=== PATIENT | female | born 1965 | race African-American/Black ===

== ENCOUNTER 2019-08-06 09:27 | Inpatient (IN) | payer OTHER ==
--- NOTE | 2019-08-06 09:47 | BHS.RME ---
Substance Use & Tx History - Substance Use History Opiates (Heroin) Substance amount: 3 bags Frequency of use: Daily Substance route: Injection (ex: intravenous or skin popping) Date of Last Use: 08/05/19 Cocaine (Crack) Substance amount: $80 Frequency of use: Daily Substance route: Smoking Date of Last Use: 08/05/19 Cannabis Substance amount: 1 blunt Frequency of use: Less than 3 times per week Substance route: Smoking Date of Last Use: 08/04/19 Physical/Psych/Mental Status - Behavior General Behavior: Increased activity (restlessness, agitation) Eye Contact: Normal - Cooperativeness Cooperativeness: Reluctant - Thinking Thought Processes: Tight, Logical, Goal Directed Thought content: Future oriented - Physical Health Problems Is patient presently having any pain?: No Does patient presently have any injuries (include location): No Does patient currently have a fever: No Is patient : No COWS - Scale Resting Pulse: 0= [place] 80 or Below Sweatin= Beads of Sweat on Face Restless Observation: 1= Difficult to Sit Still Pupil Size: 0= Normal to Room Light Bone or Joint Aches: 4=Acute Joint/Muscle Pain GI Upset > 30mins: 1= Stomach Cramp Tremor Observation: 0= None Yawning Observation: 0= None Anxiety or Irritability: 0= None Goose Flesh Skin: 0=Smooth Skin
--- NOTE | 2019-08-06 11:09 | HP ---
COWS - Scale Resting Pulse: 0= [place] 80 or Below Sweatin= Beads of Sweat on Face Restless Observation: 1= Difficult to Sit Still Pupil Size: 0= Normal to Room Light Bone or Joint Aches: 4=Acute Joint/Muscle Pain Runny Nose/ Eye Tearin= None GI Upset > 30mins: 1= Stomach Cramp Tremor Observation: 0= None Yawning Observation: 0= None Anxiety or Irritability: 0= None Goose Flesh Skin: 0=Smooth Skin COWS Score: 9 CIWA Score - Admission Criteria OASAS Guidelines: Admission for Medically Managed Detox: Requires at least one of the followin. CIWA greater than 12 2. Seizures within the past 24 hours 3. Delirium tremens within the past 24 hours 4. Hallucinations within the past 24 hours 5. Acute intervention needed for co occurring medical disorder 6. Acute intervention needed for co occurring psychiatric disorder 7. Severe withdrawal that cannot be handled at a lower level of care (continued vomiting, continued diarrhea, abnormal vital signs) requiring intravenous medication and/or fluids 8. Admitting History and Physical - Admission Chief Complaint: Ms. Borja presents to [facility] "for detox from heroin". History of Present Illness: Ms. Borja presents to [facility] "for detox from heroin". PMH: right wrist fracture 2 weeks ago, in a cast now PSH: none Psych: denies Substance use history Heroin: first use at the age of 49 y, last use yesterday, amount: $30. per day. IV use. Hx of OD one month ago. Never on methadone. CracK $80. daily, IV, last use one week ago, first use: "I can not say" I am unable to access prior visit history. Admission [facility] Exam Limitations: No Limitations - Ebola screening Have you traveled outside of the country in the last 21 days: No Have you had contact with anyone from an Ebola affected area: No Have you been sick,other than usual withdrawal symptoms: No Do you have a fever: No - Review of Systems Constitutional: No Symptoms Reported EENT: reports: No Symptoms Reported Respiratory: reports: No Symptoms reported Cardiac: reports: No Symptoms Reported GI: reports: Nausea : reports: No Symptoms Reported Musculoskeletal: reports: Other (left knee pain after fall 2 weeks ago. Right arm complaint: pain where cast is in right hand web space area) Integumentary: reports: No Symptoms Reported Neuro: reports: No Symptoms reported Endocrine: reports: No Symptoms Reported Hematology: reports: No Symptoms Reported Psychiatric: reports: No Sypmtoms Reported Patient History - Patient Medical History Hx Hepatitis C: Yes (untreated) - Smoking Cessation Smoking history: Current some day smoker Have you smoked in the past 12 months: Yes Aproximately how many cigarettes per day: 4 Hx Chewing Tobacco Use: No Initiated information on smoking cessation: Yes 'Breaking Loose' booklet given: 08/06/19 - Substances abused Heroin Substance route: Injection Frequency: Daily Amount used: $30 Age of first use: 49 Date of last use: 08/05/19 Crack Substance route: Injection Amount used: $80. Age of first use: 49 (pt can not specify) Date of last use: 07/30/19 Admission Physical Exam [facility] - Physical General Appearance: Yes: Within Normal Limits HEENTM: Yes: Within Normal Limits Respiratory: Yes: Lungs Clear, Normal Breath Sounds Neck: Yes: Within Normal Limits Breast: Yes: Breast Exam Deferred Cardiology: Yes: Regular Rate, S1, S2 Abdominal: Yes: Normal Bowel Sounds, Non Tender, Flat, Soft Back: Yes: Normal Inspection Musculoskeletal: Yes: Other (right arm casted to distal arm, fingers of right hand warm/good circulation) Neurological: Yes: Other (sleepy) Integumentary: Yes: Other (hyperpigmented patches both legs ciruclar, some confluent patches) Cleared for Admission [facility] - Detox or Rehab [facility] Level of Care: Medically Managed Detox Regimen/Protocol: Methadone Breathalyzer - Breathalyzer Breathalyzer: 0 Urine Drug Screen - Test Device Lot number: [id number] Expiration date: 05/12/21 - Control Is test valid?: Yes - Results Drug screen NEGATIVE: No Urine drug screen results: THC-Marijuana, LINA-Cocaine, FEN-Fentanyl, MOP-Opiates Inpatient Rehab Admission - Rehab Decision to Admit Inpatient rehab admission?: No
[2019-08-06] MEDS ORDERED: IBUPROFEN 400 MG TABLET (FP) PO PRN (11:19)
[2019-08-06] MEDS ORDERED: MAG HYDROX/AL HYDROX/SIMETH 30 ML UNIT-DOSE CUP PO PRN (11:19)
[2019-08-06] MEDS ORDERED: ACETAMINOPHEN 325 MG TABLET (FP) PO PRN ×2 (11:19)
[2019-08-06] MEDS ORDERED: MENTHOL/PHENOL 1 EACH UD MM PRN (11:19)
[2019-08-06] MEDS ORDERED: BISMUTH SUBSALICYLATE 262 MG/15 ML BTL PO PRN (11:19)
[2019-08-06] MEDS ORDERED: MAGNESIUM CITRATE 300 ML BOTTLE PO PRN (11:19)
[2019-08-06] MEDS ORDERED: hydrOXYzine PAMOATE 25 MG CAPSULE (FP) PO PRN (11:19)
[2019-08-06] MEDS ORDERED: MAGNESIUM HYDROX 2400MG/30ML ORAL SUSPENSION 30 ML CUP PO PRN (11:19)
[2019-08-06] MEDS ORDERED: cloNIDine HCL 0.1 MG TABLET PO PRN (11:19)
[2019-08-06 11:53] VITALS: BMI 19.8
[2019-08-06] MEDS ORDERED: METHADONE HCL 10 MG TABLET (FOR DETOX USE ONLY) PO ONE (12:20)
[2019-08-06] MEDS: NICOTINE 14 MG/24 HOURS TOPICAL PATCH TD SCH (12:55)
[2019-08-06 16:18] LABS: HEMATOCRIT 35.7 % (32.4-45.2); HEMOGLOBIN 11.4 GM/dL (10.7-15.3); MCH 31.1 pg (25.7-33.7); MCHC 31.9 g/dl (32.0-36.0); MEAN CELL VOLUME 97.5 fl (80-96); PLATELET COUNT 272 K/MM3 (134-434); RBC 3.66 M/mm3 (3.60-5.2); RDW 14.6 % (11.6-15.6); WHITE BLOOD COUNT 4.5 K/mm3 (4.0-10.0)
[2019-08-06 16:35] LABS: ALBUMIN 3.1 g/dl (3.4-5.0); BILIRUBIN,TOTAL 0.3 mg/dL (0.2-1); BLOOD UREA NITROGEN 18.5 mg/dL (7-18); CALCIUM 9.3 mg/dL (8.5-10.1); POTASSIUM 4.7 mmol/L (3.5-5.1); TOT PROT 7.5 g/dl (6.4-8.2)
[2019-08-06] MEDS: MELATONIN 5 MG TABLETS PO PRN (22:17)
[2019-08-06] MEDS: THIAMINE HCL 100 MG TABLET (FP) PO SCH (22:17)
[2019-08-07] MEDS ORDERED: METHADONE HCL 10 MG TABLET (FOR DETOX USE ONLY) ONE (09:04)
[2019-08-07] MEDS ORDERED: METHADONE HCL 5 MG TABLET (FOR DETOX USE ONLY) ONE (09:05)
[2019-08-07] MEDS: PRENATAL VITAMINS W/ FOLIC ACID TABLET (FP) PO SCH (09:36)
[2019-08-07] MEDS: NICOTINE 14 MG/24 HOURS TOPICAL PATCH TD SCH (09:36)
--- NOTE | 2019-08-07 09:42 | EKG ---
Test Reason : Blood Pressure : / mmHG Vent. Rate : 078 BPM Atrial Rate : 078 BPM P-R Int : 120 ms QRS Dur : 078 ms QT Int : 400 ms P-R-T Axes : 075 066 069 degrees QTc Int : 456 ms NORMAL SINUS RHYTHM POSSIBLE LEFT ATRIAL ENLARGEMENT BORDERLINE ECG NO PREVIOUS ECGS AVAILABLE Confirmed by Sean Cueva MD ([id number]) on 08/07/2019 9:42:25 AM Referred By: Confirmed By:Sean Cueva MD
[2019-08-07] MEDS ORDERED: METHADONE (DETOX) 20 MG, METHADONE (DETOX) 5 MG PO ONE (10:00)
--- NOTE | 2019-08-07 13:50 | PN ---
BHS COWS - Scale Resting Pulse: 0= [place] 80 or Below Sweatin= Chills/Flushing Restless Observation: 0= Sits Still Pupil Size: 1= Pupils >than Normal Bone or Joint Aches: 1= Mild Discomfort Runny Nose/ Eye Tearin= Nasal Congestion GI Upset > 30mins: 1= Stomach Cramp Tremor Observation of Outstretched Hands: 1= Tremor [place], Not Seen Yawning Observation: 0= None Anxiety or Irritability: 2=Irritable/Anxious Goose Flesh Skin: 0=Smooth Skin COWS Score: 8 S Progress Note (SOAP) Subjective: 54 years old female admitted on 08/06/19 for opiate withdrawal sx management treating with methadone detox regiment ate breakfast tolerated food and fluid well reports headache tylenal 650 mg po x 1 Objective: 08/07/19 13:46 Vital Signs Temperature 98.3 F 08/07/19 12:54 Pulse Rate 70 08/07/19 12:54 Respiratory Rate 16 08/07/19 12:54 Blood Pressure 125/79 08/07/19 12:54 O2 Sat by Pulse Oximetry (%) Laboratory Last Values WBC 4.5 K/mm3 (4.0-10.0) 08/06/19 12:00 RBC 3.66 M/mm3 (3.60-5.2) 08/06/19 12:00 Hgb 11.4 GM/dL (10.7-15.3) 08/06/19 12:00 Hct 35.7 % (32.4-45.2) 08/06/19 12:00 MCV 97.5 fl (80-96) H 08/06/19 12:00 MCH 31.1 pg (25.7-33.7) 08/06/19 12:00 MCHC 31.9 g/dl (32.0-36.0) L 08/06/19 12:00 RDW 14.6 % (11.6-15.6) 08/06/19 12:00 Plt Count 272 K/MM3 (134-434) 08/06/19 12:00 MPV 9.0 fl (7.5-11.1) 08/06/19 12:00 Sodium 144 mmol/L (136-145) 08/06/19 12:00 Potassium 4.7 mmol/L (3.5-5.1) 08/06/19 12:00 Chloride 110 mmol/L (98-107) H 08/06/19 12:00 Carbon Dioxide 30 mmol/L (21-32) 08/06/19 12:00 Anion Gap 4 MMOL/L (8-16) L 08/06/19 12:00 BUN 18.5 mg/dL (7-18) H 08/06/19 12:00 Creatinine 1.0 mg/dL (0.55-1.3) 08/06/19 12:00 Est GFR (CKD-EPI)AfAm 72.93 08/06/19 12:00 Est GFR (CKD-EPI)NonAf 62.93 08/06/19 12:00 Random Glucose 114 mg/dL (74-106) H 08/06/19 12:00 Calcium 9.3 mg/dL (8.5-10.1) 08/06/19 12:00 Total Bilirubin 0.3 mg/dL (0.2-1) 08/06/19 12:00 AST 19 U/L (15-37) 08/06/19 12:00 ALT 20 U/L (13-61) 08/06/19 12:00 Alkaline Phosphatase 147 U/L (45-117) H 08/06/19 12:00 Total Protein 7.5 g/dl (6.4-8.2) 08/06/19 12:00 Albumin 3.1 g/dl (3.4-5.0) L 08/06/19 12:00 RPR Titer Nonreactive (NONREACTIVE) 08/06/19 12:00 lab noted Assessment: 08/07/19 13:52 opiate withdrawal Plan: methadone regiment
[2019-08-07] MEDS ORDERED: ACETAMINOPHEN 325 MG TABLET (FP) PO ONE (14:00)
[2019-08-07] MEDS: MELATONIN 5 MG TABLETS PO PRN (22:14)
[2019-08-07] MEDS: THIAMINE HCL 100 MG TABLET (FP) PO SCH (22:15)
--- NOTE | 2019-08-08 09:44 | PN ---
BHS COWS - Scale Resting Pulse: 0= [place] 80 or Below Sweatin= No chills or Flushing Restless Observation: 0= Sits Still Pupil Size: 1= Pupils >than Normal Bone or Joint Aches: 2= Severe Diffuse Aches Runny Nose/ Eye Tearin= None GI Upset > 30mins: 1= Stomach Cramp Tremor Observation of Outstretched Hands: 1= Tremor [place], Not Seen Yawning Observation: 0= None Anxiety or Irritability: 2=Irritable/Anxious Goose Flesh Skin: 0=Smooth Skin COWS Score: 7 BHS Progress Note (SOAP) Subjective: 54 years old female admitted on 08/06/19 for opiate withdrawal sx management treating with methadone detox regiment right forearm full cast intack fingers mobile and warm ensure supplement due to BMI 19.8 Ms Huong fracture her right wrist two weeks ago and has follow up appointment around beginning of the August at [facility] Objective: 08/08/19 09:45 Vital Signs Temperature 98.2 F 08/08/19 06:52 Pulse Rate 52 L 08/08/19 06:52 Respiratory Rate 18 08/08/19 06:52 Blood Pressure 140/91 08/08/19 06:52 O2 Sat by Pulse Oximetry (%) Laboratory Last Values WBC 4.5 K/mm3 (4.0-10.0) 08/06/19 12:00 RBC 3.66 M/mm3 (3.60-5.2) 08/06/19 12:00 Hgb 11.4 GM/dL (10.7-15.3) 08/06/19 12:00 Hct 35.7 % (32.4-45.2) 08/06/19 12:00 MCV 97.5 fl (80-96) H 08/06/19 12:00 MCH 31.1 pg (25.7-33.7) 08/06/19 12:00 MCHC 31.9 g/dl (32.0-36.0) L 08/06/19 12:00 RDW 14.6 % (11.6-15.6) 08/06/19 12:00 Plt Count 272 K/MM3 (134-434) 08/06/19 12:00 MPV 9.0 fl (7.5-11.1) 08/06/19 12:00 Sodium 144 mmol/L (136-145) 08/06/19 12:00 Potassium 4.7 mmol/L (3.5-5.1) 08/06/19 12:00 Chloride 110 mmol/L (98-107) H 08/06/19 12:00 Carbon Dioxide 30 mmol/L (21-32) 08/06/19 12:00 Anion Gap 4 MMOL/L (8-16) L 08/06/19 12:00 BUN 18.5 mg/dL (7-18) H 08/06/19 12:00 Creatinine 1.0 mg/dL (0.55-1.3) 08/06/19 12:00 Est GFR (CKD-EPI)AfAm 72.93 08/06/19 12:00 Est GFR (CKD-EPI)NonAf 62.93 08/06/19 12:00 Random Glucose 114 mg/dL (74-106) H 08/06/19 12:00 Calcium 9.3 mg/dL (8.5-10.1) 08/06/19 12:00 Total Bilirubin 0.3 mg/dL (0.2-1) 08/06/19 12:00 AST 19 U/L (15-37) 08/06/19 12:00 ALT 20 U/L (13-61) 08/06/19 12:00 Alkaline Phosphatase 147 U/L (45-117) H 08/06/19 12:00 Total Protein 7.5 g/dl (6.4-8.2) 08/06/19 12:00 Albumin 3.1 g/dl (3.4-5.0) L 08/06/19 12:00 RPR Titer Nonreactive (NONREACTIVE) 08/06/19 12:00 lab noted 08/08/19 09:47 bp elevation begin amlodipine 5 mg po daily Assessment: 08/08/19 09:48 opiate withdrawal Plan: methadone regiment
[2019-08-08] MEDS ORDERED: METHADONE HCL 10 MG TABLET (FOR DETOX USE ONLY) PO ONE (10:00)
[2019-08-08] MEDS: NICOTINE 14 MG/24 HOURS TOPICAL PATCH TD SCH (10:14)
[2019-08-08] MEDS: PRENATAL VITAMINS W/ FOLIC ACID TABLET (FP) PO SCH (10:14)
[2019-08-08] MEDS: amLODIPine BESYLATE 5 MG TABLET (FP) PO SCH (10:15)
[2019-08-08] MEDS: MELATONIN 5 MG TABLETS PO PRN (22:35)
[2019-08-08] MEDS: THIAMINE HCL 100 MG TABLET (FP) PO SCH (22:35)
[2019-08-09] MEDS ORDERED: METHADONE HCL 5 MG TABLET (FOR DETOX USE ONLY) ONE (09:46)
[2019-08-09] MEDS ORDERED: METHADONE HCL 10 MG TABLET (FOR DETOX USE ONLY) ONE (09:46)
[2019-08-09] MEDS ORDERED: METHADONE (DETOX) 10 MG, METHADONE (DETOX) 5 MG PO ONE (10:00)
[2019-08-09] MEDS: PRENATAL VITAMINS W/ FOLIC ACID TABLET (FP) PO SCH (10:27)
[2019-08-09] MEDS: NICOTINE 14 MG/24 HOURS TOPICAL PATCH TD SCH (10:27)
[2019-08-09] MEDS: amLODIPine BESYLATE 5 MG TABLET (FP) PO SCH (10:27)
[2019-08-09] MEDS: METHOCARBAMOL 500 MG TABLET PO PRN ×2 (10:31→22:11)
--- NOTE | 2019-08-09 10:37 | PN ---
BHS COWS - Scale Resting Pulse: 0= [place] 80 or Below Sweatin= Chills/Flushing Restless Observation: 0= Sits Still Pupil Size: 1= Pupils >than Normal Bone or Joint Aches: 1= Mild Discomfort Runny Nose/ Eye Tearin= None GI Upset > 30mins: 1= Stomach Cramp Tremor Observation of Outstretched Hands: 1= Tremor [place], Not Seen Yawning Observation: 0= None Anxiety or Irritability: 1=Feels Anxious/Irritable Goose Flesh Skin: 0=Smooth Skin COWS Score: 6 BHS Progress Note (SOAP) Subjective: 54 years old female admitted on 08/06/19 for opiate withdrawal sx management treating with methadone detox regiment ate breakfast no trouble chewing swallowing tolerated food well Objective: 08/09/19 10:37 Vital Signs Temperature 97.2 F L 08/09/19 08:45 Pulse Rate 65 08/09/19 08:45 Respiratory Rate 18 08/09/19 08:45 Blood Pressure 125/82 08/09/19 08:45 O2 Sat by Pulse Oximetry (%) Laboratory Last Values WBC 4.5 K/mm3 (4.0-10.0) 08/06/19 12:00 RBC 3.66 M/mm3 (3.60-5.2) 08/06/19 12:00 Hgb 11.4 GM/dL (10.7-15.3) 08/06/19 12:00 Hct 35.7 % (32.4-45.2) 08/06/19 12:00 MCV 97.5 fl (80-96) H 08/06/19 12:00 MCH 31.1 pg (25.7-33.7) 08/06/19 12:00 MCHC 31.9 g/dl (32.0-36.0) L 08/06/19 12:00 RDW 14.6 % (11.6-15.6) 08/06/19 12:00 Plt Count 272 K/MM3 (134-434) 08/06/19 12:00 MPV 9.0 fl (7.5-11.1) 08/06/19 12:00 Sodium 144 mmol/L (136-145) 08/06/19 12:00 Potassium 4.7 mmol/L (3.5-5.1) 08/06/19 12:00 Chloride 110 mmol/L (98-107) H 08/06/19 12:00 Carbon Dioxide 30 mmol/L (21-32) 08/06/19 12:00 Anion Gap 4 MMOL/L (8-16) L 08/06/19 12:00 BUN 18.5 mg/dL (7-18) H 08/06/19 12:00 Creatinine 1.0 mg/dL (0.55-1.3) 08/06/19 12:00 Est GFR (CKD-EPI)AfAm 72.93 08/06/19 12:00 Est GFR (CKD-EPI)NonAf 62.93 08/06/19 12:00 Random Glucose 114 mg/dL (74-106) H 08/06/19 12:00 Calcium 9.3 mg/dL (8.5-10.1) 08/06/19 12:00 Total Bilirubin 0.3 mg/dL (0.2-1) 08/06/19 12:00 AST 19 U/L (15-37) 08/06/19 12:00 ALT 20 U/L (13-61) 08/06/19 12:00 Alkaline Phosphatase 147 U/L (45-117) H 08/06/19 12:00 Total Protein 7.5 g/dl (6.4-8.2) 08/06/19 12:00 Albumin 3.1 g/dl (3.4-5.0) L 08/06/19 12:00 RPR Titer Nonreactive (NONREACTIVE) 08/06/19 12:00 lab noted Assessment: 08/09/19 10:37 opiate withdrawal Plan: methadone regiment
[2019-08-09] MEDS: THIAMINE HCL 100 MG TABLET (FP) PO SCH (22:10)
[2019-08-09] MEDS: MELATONIN 5 MG TABLETS PO PRN (22:11)
[2019-08-10] MEDS: METHOCARBAMOL 500 MG TABLET PO PRN ×3 (05:10→21:33)
[2019-08-10] MEDS ORDERED: METHADONE HCL 10 MG TABLET (FOR DETOX USE ONLY) PO ONE (10:00)
[2019-08-10] MEDS: PRENATAL VITAMINS W/ FOLIC ACID TABLET (FP) PO SCH (10:44)
[2019-08-10] MEDS: NICOTINE 14 MG/24 HOURS TOPICAL PATCH TD SCH (10:46)
--- NOTE | 2019-08-10 11:24 | PN ---
BHS COWS - Scale Resting Pulse: 0= [place] 80 or Below Sweatin= No chills or Flushing Restless Observation: 1= Difficult to Sit Still Pupil Size: 1= Pupils >than Normal Bone or Joint Aches: 1= Mild Discomfort Runny Nose/ Eye Tearin= None GI Upset > 30mins: 1= Stomach Cramp Tremor Observation of Outstretched Hands: 1= Tremor [place], Not Seen Yawning Observation: 1= 1-2x During Session Anxiety or Irritability: 2=Irritable/Anxious Goose Flesh Skin: 0=Smooth Skin COWS Score: 8 BHS Progress Note (SOAP) Subjective: alert,irritable,anxious,interrupted sleep,long arm cast right Objective: 08/10/19 11:23 Vital Signs Temperature 97.8 F 08/10/19 08:38 Pulse Rate 64 08/10/19 08:38 Respiratory Rate 18 08/10/19 08:38 Blood Pressure 132/74 08/10/19 08:38 O2 Sat by Pulse Oximetry (%) Assessment: 08/10/19 11:23 withdrawal symptom Plan: continue detox methadone regimen,discharge in am
[2019-08-10] MEDS: amLODIPine BESYLATE 5 MG TABLET (FP) PO SCH (11:54)
[2019-08-10] MEDS: MELATONIN 5 MG TABLETS PO PRN (21:34)
[2019-08-10] MEDS: THIAMINE HCL 100 MG TABLET (FP) PO SCH (21:34)
[2019-08-11] MEDS: METHOCARBAMOL 500 MG TABLET PO PRN (03:47)
[2019-08-11] MEDS ORDERED: METHADONE HCL 5 MG TABLET (FOR DETOX USE ONLY) PO ONE (06:00)
[2019-08-11 07:24] VITALS: BP 113/65; PULSE 64; TEMP 96.9
--- NOTE | 2019-08-11 12:55 | DS ---
[facility] Detox Discharge Summary Admission Date: 08/06/19 Discharge Date: 08/11/19 - History Present History: Cocaine Dependence, Opioid Dependence Additional Comments: Pt is medically cleared and discharged today. Pt completed the detox protocol. Pt is encouraged to follow-up with an outpatient CD program and also to follow- up with her pmd. Pt verbalized understanding of the information given. Pt is alert and oriented x3 and in no acute respiratory distress. Pertinent Past History: heroin and cocaine use disorder. - Physical Exam Results Vital Signs: Vital Signs Temperature 96.9 F L 08/11/19 07:23 Pulse Rate 64 08/11/19 07:23 Respiratory Rate 16 08/11/19 07:23 Blood Pressure 113/65 08/11/19 07:23 O2 Sat by Pulse Oximetry (%) Vital Signs 08/11/19 07:23 Temperature 96.9 F L Pulse Rate 64 Respiratory 16 Rate Blood Pressure 113/65 Laboratory Last Values WBC 4.5 K/mm3 (4.0-10.0) 08/06/19 12:00 RBC 3.66 M/mm3 (3.60-5.2) 08/06/19 12:00 Hgb 11.4 GM/dL (10.7-15.3) 08/06/19 12:00 Hct 35.7 % (32.4-45.2) 08/06/19 12:00 MCV 97.5 fl (80-96) H 08/06/19 12:00 MCH 31.1 pg (25.7-33.7) 08/06/19 12:00 MCHC 31.9 g/dl (32.0-36.0) L 08/06/19 12:00 RDW 14.6 % (11.6-15.6) 08/06/19 12:00 Plt Count 272 K/MM3 (134-434) 08/06/19 12:00 MPV 9.0 fl (7.5-11.1) 08/06/19 12:00 Sodium 144 mmol/L (136-145) 08/06/19 12:00 Potassium 4.7 mmol/L (3.5-5.1) 08/06/19 12:00 Chloride 110 mmol/L (98-107) H 08/06/19 12:00 Carbon Dioxide 30 mmol/L (21-32) 08/06/19 12:00 Anion Gap 4 MMOL/L (8-16) L 08/06/19 12:00 BUN 18.5 mg/dL (7-18) H 08/06/19 12:00 Creatinine 1.0 mg/dL (0.55-1.3) 08/06/19 12:00 Est GFR (CKD-EPI)AfAm 72.93 08/06/19 12:00 Est GFR (CKD-EPI)NonAf 62.93 08/06/19 12:00 Random Glucose 114 mg/dL (74-106) H 08/06/19 12:00 Calcium 9.3 mg/dL (8.5-10.1) 08/06/19 12:00 Total Bilirubin 0.3 mg/dL (0.2-1) 08/06/19 12:00 AST 19 U/L (15-37) 08/06/19 12:00 ALT 20 U/L (13-61) 08/06/19 12:00 Alkaline Phosphatase 147 U/L (45-117) H 08/06/19 12:00 Total Protein 7.5 g/dl (6.4-8.2) 08/06/19 12:00 Albumin 3.1 g/dl (3.4-5.0) L 08/06/19 12:00 RPR Titer Nonreactive (NONREACTIVE) 08/06/19 12:00 Labs noted. Pertinent Admission Physical Exam Findings: withdrawal symptoms. - Treatment Hospital Course: Detox Protocol Followed, Detoxed Safely, Responded well, Discharged Condition Good - Medication Discharge Medications: Ambulatory Orders Naloxone HCl [Narcan] 4 mg NS ASDIR PRN #1 spray 08/08/19 - Diagnosis (1) Cocaine use disorder Status: Chronic (2) Heroin use disorder, mild, abuse Status: Chronic - AMA Did Patient Leave Against Medical Advice: No
== END 2019-08-11 09:00 | disposition home or self-care (01) | DRG 773 ==
LOC: YASAS 09:27 → Y3N 12:18
PROVIDERS: ADMIT Allergy & Immunology; ATTEND Allergy & Immunology
PROC: HZ2ZZZZ Detoxification Services for Substance Abuse Treatment (ICD-10-PCS; principal; 2019-08-06)
DX: F11.23 Opioid dependence with withdrawal (principal); F14.20 Cocaine dependence, uncomplicated; F12.20 Cannabis dependence, uncomplicated; R03.0 Elevated blood-pressure reading, without diagnosis of hypertension; S62.101D Fracture of unspecified carpal bone, right wrist, subsequent encounter for fracture with routine healing; X58.XXXD Exposure to other specified factors, subsequent encounter
CPT/HCPCS: 36415; 80053; 85027; 86593; 93005; 93010

== ENCOUNTER 2019-12-17 18:21 | Inpatient (IN) | payer OTHER ==
[2019-12-17 19:17] VITALS: BMI 19.5
--- NOTE | 2019-12-17 20:51 | HP ---
COWS - Scale Resting Pulse: 0= [place] 80 or Below Sweatin= No chills or Flushing Restless Observation: 5= Unable to Sit Still Pupil Size: 0= Normal to Room Light Bone or Joint Aches: 0= None Runny Nose/ Eye Tearin= Runny Nose/Eyes GI Upset > 30mins: 5=Frequent Vomit/Diarrhea (diarrhea) Tremor Observation: 0= None Yawning Observation: 1= 1-2x During Session Anxiety or Irritability: 2=Irritable/Anxious Goose Flesh Skin: 0=Smooth Skin COWS Score: 15 CIWA Score - Admission Criteria OASAS Guidelines: Admission for Medically Managed Detox: Requires at least one of the followin. CIWA greater than 12 2. Seizures within the past 24 hours 3. Delirium tremens within the past 24 hours 4. Hallucinations within the past 24 hours 5. Acute intervention needed for co occurring medical disorder 6. Acute intervention needed for co occurring psychiatric disorder 7. Severe withdrawal that cannot be handled at a lower level of care (continued vomiting, continued diarrhea, abnormal vital signs) requiring intravenous medication and/or fluids 8. Admitting History and Physical - Past Medical History ...: No - Smoking History Smoking history: Current every day smoker Have you smoked in the past 12 months: Yes Aproximately how many cigarettes per day: 4 Admission ROS [facility] Chief Complaint: c/o heroin withdrawal. seeking detox Allergies/Adverse Reactions: Allergies Allergy/AdvReac Type Severity Reaction Status Date / Time No Known Allergies Allergy Verified 12/17/19 19:17 History of Present Illness: HERE FOR HEROIN DETOX. REPORTS DAILY HEROIN USE. LAST USE 1 DAY AGO. NOW PRESENTS WITH C/O WITHDRAWAL SXS. SEEKING DETOX. SHE IS REFERRED BY [facility] AFTER PRESENTING THERE TODAY WITH C/O INDIGESTION. KNOWN TO PROGRAM. LAST AMD 08/06/19-08/11/19 FOR DETOX. CLIENT REPORTS SHE WAS CLEAN FOR 3 MONTHS PRIOR TO RELAPSING 1 MONTH AGO. + IVDU, DENIES HX/O DRUG OVERDOSE, BLACK OUTS, SEIZURES. LIVES ALONE, UNEMPLOYED, DENIES LEGALS. Exam Limitations: No Limitations - Ebola screening Have you traveled outside of the country in the last 21 days: No Have you had contact with anyone from an Ebola affected area: No Have you been sick,other than usual withdrawal symptoms: No Do you have a fever: No - Review of Systems Constitutional: Chills, Malaise, Changes in sleep, Unintentional Wgt. Loss EENT: reports: Dental Problems (MISSING TEETH) Respiratory: reports: No Symptoms reported Cardiac: reports: No Symptoms Reported GI: reports: Diarrhea, Poor Appetite, Poor Fluid Intake, Indigestion, Abdominal cramping : reports: No Symptoms Reported Musculoskeletal: reports: Joint Pain Integumentary: reports: No Symptoms Reported Neuro: reports: No Symptoms reported Endocrine: reports: No Symptoms Reported Hematology: reports: No Symptoms Reported Psychiatric: reports: Orientated x3, Agitated Other Systems: Reviewed and Negative Patient History - Patient Medical History Hx Anemia: No Hx Asthma: No Hx Chronic Obstructive Pulmonary Disease (COPD): No Hx Cancer: No Hx Cardiac Disorders: No Hx Congestive Heart Failure: No Hx Hypertension: Yes (NON COMPLIANT WITH MED) Hx Seizures: No Hx Diabetes: No Hx Gastrointestinal Disorders: No Hx Genitourinary Disorders: No Hx Sexually Transmitted Disorders: No Hx Renal Disease (ESRD): No Hx Hepatitis C: Yes (TREATED) Hx Depression: No Hx Suicide Attempt: No Hx Bipolar Disorder: No Hx Schizophrenia: No Other Medical History: DENIES - Patient Surgical History Past Surgical History: No Hx Neurologic Surgery: No Hx Cataract Extraction: No Hx Cardiac Surgery: No Hx Lung Surgery: No Hx Breast Surgery: No Hx Breast Biopsy: No Hx Abdominal Surgery: No Hx Appendectomy: No Hx Cholecystectomy: No Hx Genitourinary Surgery: No Hx Section: No Hx Orthopedic Surgery: No Anesthesia Reaction: No - PPD History Previous Implant?: Yes Documented Results: Negative w/proof Implanted On Prior [facility] Admission?: Yes Date: 08/08/19 Results: 0MM PPD to be Administered?: No - Reproductive History Patient is a Female of Child Bearing Age (11 -55 yrs old): No LMP comment: MENAPAUSE - Smoking Cessation Smoking history: Current every day smoker Have you smoked in the past 12 months: Yes Aproximately how many cigarettes per day: 4 Cigars Per Day: 0 Hx Chewing Tobacco Use: No Initiated information on smoking cessation: Yes 'Breaking Loose' booklet given: 12/17/19 - Substance & Tx. History Hx Alcohol Use: No Hx Substance Use: Yes Substance Use Type: Heroin Hx Substance Use Treatment: Yes ([facility]) - Substances abused Heroin Substance route: Injection Frequency: Daily Amount used: 3 BAGS Age of first use: 36 Date of last use: 12/16/19 Marijuana/Hashish Substance route: Smoking Frequency: Daily Amount used: 2 JOINTS Age of first use: 12 Date of last use: 12/16/19 Admission Physical Exam S - Vital Signs Vital Signs: Vital Signs - 24 hr 12/17/19 12/17/19 19:15 19:19 Temperature 98.0 F 98.0 F Pulse Rate 70 70 Respiratory 18 18 Rate Blood Pressure 164/84 164/84 - Physical General Appearance: Yes: Mild Distress, Thin, Irritable, Other (PERIODS OF DROWSINESS) HEENTM: Yes: EOMI, Normocephalic, Normal Voice, JOSE, Pharynx Normal, Other (MISSING TOP TEETH) Respiratory: Yes: Chest Non-Tender, Lungs Clear, Normal Breath Sounds, No Respiratory Distress, No Accessory Muscle Use Neck: Yes: No masses,lesions,Nodules, Supple, Trachea in good position Breast: Yes: Breasts Symetrical Cardiology: Yes: Regular Rhythm, Regular Rate, S1, S2 Abdominal: Yes: Non Tender, Flat, Soft, Increased Bowel Sounds Genitourinary: Yes: Within Normal Limits Back: Yes: Normal Inspection Musculoskeletal: Yes: full range of Motion, Gait Steady Extremities: Yes: Normal Capillary Refill, Normal Range of Motion, Non-Tender, Other (DEFORMITY OF R WRIST 2/2 OLD FRACTURE) Neurological: Yes: Fully Oriented, Alert, Motor Strength 5/5, Depressed Affect, Other (DROWSI) Integumentary: Yes: Dry, Warm, Track [place] (TO BOTH ARMS), Other (OLD SCARRING TO ARMS AND LEGS WITH HYPERPIGMENTATION OF THE SKIN) Lymphatic: Yes: Within Normal Limits - Diagnostic (1) Opioid dependence with withdrawal Current Visit: Yes Status: Acute (2) Cannabis dependence, uncomplicated Current Visit: Yes Status: Acute (3) Cocaine dependence, uncomplicated Current Visit: Yes Status: Acute (4) IVDU (intravenous drug user) Current Visit: Yes Status: Acute (5) Depressed affect Current Visit: Yes Status: Suspected (6) At risk for dehydration due to poor fluid intake Current Visit: Yes Status: Acute (7) Non compliance with medical treatment Current Visit: Yes Status: Suspected (8) HTN (hypertension) Current Visit: Yes Status: Chronic Qualifiers: Hypertension type: unspecified Qualified Code(s): I10 - Essential (primary) hypertension Cleared for Admission S - Detox or Rehab [facility] Level of Care: Medically Managed Detox Regimen/Protocol: Methadone Claeared for Rehab Admission: No Breathalyzer - Breathalyzer Breathalyzer: 0 Urine Drug Screen - Test Device Lot number: [id number] Expiration date: 02/10/21 - Control Is test valid?: Yes - Results Drug screen NEGATIVE: No Urine drug screen results: THC-Marijuana, LINA-Cocaine, FEN-Fentanyl, MOP-Opiates Inpatient Rehab Admission - Rehab Decision to Admit Inpatient rehab admission?: No
[2019-12-17] MEDS ORDERED: DICYCLOMINE HCL 10 MG CAPSULE PO PRN (20:58)
[2019-12-17] MEDS ORDERED: guaiFENesin 200 MG/10 ML 10 ML UNIT-DOSE CUPS PO PRN (20:58)
[2019-12-17] MEDS ORDERED: NICOTINE POLACRILEX 2 MG GUM BUC PRN (20:58)
[2019-12-17] MEDS ORDERED: hydrOXYzine PAMOATE 25 MG CAPSULE (FP) PO PRN (20:58)
[2019-12-17] MEDS ORDERED: ONDANSETRON *ODT* 4 MG TABLET SL ONE (20:58)
[2019-12-17] MEDS ORDERED: MAGNESIUM CITRATE 300 ML BOTTLE PO PRN (20:58)
[2019-12-17] MEDS ORDERED: P-EPHED 60MG/TRIPROLIDI 2.5MG TABLET PO PRN (20:58)
[2019-12-17] MEDS ORDERED: MAG HYDROX/AL HYDROX/SIMETH 30 ML UNIT-DOSE CUP PO PRN (20:58)
[2019-12-17] MEDS ORDERED: MAGNESIUM HYDROX 2400MG/30ML ORAL SUSPENSION 30 ML CUP PO PRN (20:58)
[2019-12-17] MEDS ORDERED: ACETAMINOPHEN 325 MG TABLET (FP) PO PRN ×2 (20:58)
[2019-12-17] MEDS ORDERED: IBUPROFEN 400 MG TABLET (FP) PO PRN (20:58)
[2019-12-17] MEDS ORDERED: BISMUTH SUBSALICYLATE 524 MG/30 ML UD PO PRN (20:58)
[2019-12-17] MEDS ORDERED: MENTHOL/PHENOL 1 EACH UD MM PRN (20:58)
[2019-12-17] MEDS ORDERED: MELATONIN 5 MG TABLETS PO SCH (22:00)
[2019-12-17] MEDS: THIAMINE HCL 100 MG TABLET (FP) PO SCH (23:02)
[2019-12-17] MEDS: METHOCARBAMOL 500 MG TABLET PO PRN (23:04)
[2019-12-18] MEDS ORDERED: METHADONE HCL 10 MG TABLET (FOR DETOX USE ONLY) PO ONE (05:19)
[2019-12-18] MEDS ORDERED: cloNIDine HCL 0.1 MG TABLET PO PRN (05:19)
--- NOTE | 2019-12-18 09:58 | CONSULT ---
[facility] Psychiatric Consult - Data Date of interview: 12/18/19 Admission source: [facility] Identifying data: Ms Borja is a 54 years old Black female, mother of 4 children, unemployed receiving SSI, homeless seeking detox treatment for opioid and cannabis Substance Abuse History: Reports history of heroin and marijuana use. Refer to addiction counselorv's summary for further information Medical History: Significant for hypertension and history of treatment for hepatitis C. Smokes 4 cigarettes daily Psychiatric History: Denies history of previous psychiatric treatment. However, reports sleeping poorly Physical/Sexual Abuse/Trauma History: Denies history of abuse as a child or DV relationship as an adult Mental Status Exam - Mental Status Exam Alert and Oriented to: Time, Place, Person Cognitive Function: Fair Patient Appearance: Well Groomed Mood: Hopeful, Euthymic Affect: Appropriate Patient Behavior: Cooperative Speech Pattern: Clear Voice Loudness: Normal Thought Process: Intact, Goal Oriented Hallucinations: Denies Suicidal Ideation: Denies Homicidal Ideation: Denies Insight/Judgement: Poor Sleep: Poorly Appetite: Poor Muscle strength/Tone: Normal Gait/Station: Normal Psychiatric Findings - Problem List ([place] 1, 2,3) (1) Substance-induced sleep disorder Current Visit: Yes Status: Acute (2) Opioid dependence with withdrawal Current Visit: Yes Status: Acute (3) Cocaine dependence, uncomplicated Current Visit: Yes Status: Acute (4) Cannabis dependence, uncomplicated Current Visit: Yes Status: Acute (5) Nicotine dependence Current Visit: Yes Status: Chronic (6) HTN (hypertension) Current Visit: Yes Status: Chronic Qualifiers: Hypertension type: unspecified Qualified Code(s): I10 - Essential (primary) hypertension (7) Hepatitis C Current Visit: Yes Status: Resolved - Initial Treatment Plan Initial Treatment Plan: 1) Start Melatonin 10 mg po HS prn for insomnia. 2) Continue inpatient detoxification
[2019-12-18] MEDS ORDERED: MELATONIN 5 MG TABLETS PO PRN (10:02)
[2019-12-18] MEDS: NICOTINE 14 MG/24 HOURS TOPICAL PATCH TD SCH (10:16)
[2019-12-18] MEDS: PRENATAL VITAMINS W/ FOLIC ACID TABLET (FP) PO SCH (10:16)
--- NOTE | 2019-12-18 12:45 | PN ---
[facility] COWS - Scale Resting Pulse: 0= [place] 80 or Below Sweatin= Chills/Flushing Restless Observation: 0= Sits Still Pupil Size: 1= Pupils >than Normal Bone or Joint Aches: 1= Mild Discomfort Runny Nose/ Eye Tearin= None GI Upset > 30mins: 2= Nausea/Diarrhea Tremor Observation of Outstretched Hands: 1= Tremor [place], Not Seen Yawning Observation: 0= None Anxiety or Irritability: 2=Irritable/Anxious Goose Flesh Skin: 3=Piloerection COWS Score: 11 S Progress Note (SOAP) Subjective: 54 years old female admitted on 12/17/19 for opiate withdrawal sx management treating with methadone detox regiment ensure 120 ml po supplement Vital Signs - 24 hr 12/17/19 12/17/19 12/17/19 19:15 19:19 22:50 Temperature 98.0 F 98.0 F 97.1 F L Pulse Rate 70 70 62 Respiratory 18 18 16 Rate Blood Pressure 164/84 164/84 163/90 O2 Sat by Pulse 98 Oximetry (%) 12/18/19 12/18/19 06:15 08:48 Temperature 97.6 F 97.3 F L Pulse Rate 73 62 Respiratory 16 18 Rate Blood Pressure 158/91 151/89 O2 Sat by Pulse 97 Oximetry (%) bp elevation amlodipine 5 mg po daily initiated clonidine 0.1 mg po prn lab pending Objective: 12/18/19 12:55 lab pending Assessment: 12/18/19 12:55 opiate withdrawal Plan: methadone regiment
[2019-12-18] MEDS ORDERED: amLODIPine BESYLATE 5 MG TABLET (FP) PO SCH (13:00)
[2019-12-18 16:14] LABS: HEMATOCRIT 37.8 % (32.4-45.2); MCH 30.6 pg (25.7-33.7); MCHC 31.6 g/dl (32.0-36.0); MEAN CELL VOLUME 96.8 fl (80-96); MEAN PLT VOLUME 9.4 fl (7.5-11.1); PLATELET COUNT 202 K/MM3 (134-434); RBC 3.91 M/mm3 (3.60-5.2); RDW 14.1 % (11.6-15.6)
[2019-12-18 16:15] LABS: ALBUMIN 3.2 g/dl (3.4-5.0); BILIRUBIN,TOTAL 0.5 mg/dL (0.2-1); BLOOD UREA NITROGEN 13.1 mg/dL (7-18); CALCIUM 8.7 mg/dL (8.5-10.1); CREATININE 0.9 mg/dL (0.55-1.3); POTASSIUM 4.4 mmol/L (3.5-5.1); TOT PROT 7.1 g/dl (6.4-8.2)
[2019-12-18] MEDS ORDERED: MASKS NR ONE (17:08)
[2019-12-18] MEDS: cloNIDine HCL 0.1 MG TABLET PO PRN ×2 (17:29→23:49)
[2019-12-18] MEDS: THIAMINE HCL 100 MG TABLET (FP) PO SCH (22:27)
[2019-12-19] MEDS: cloNIDine HCL 0.1 MG TABLET PO PRN (07:17)
[2019-12-19] MEDS: NICOTINE 14 MG/24 HOURS TOPICAL PATCH TD SCH (09:43)
[2019-12-19] MEDS: amLODIPine BESYLATE 10 MG TABLET (FP) PO SCH (09:43)
[2019-12-19] MEDS: PRENATAL VITAMINS W/ FOLIC ACID TABLET (FP) PO SCH (09:43)
[2019-12-19] MEDS ORDERED: METHADONE HCL 5 MG TABLET (FOR DETOX USE ONLY) PO ONE (10:00)
--- NOTE | 2019-12-19 10:23 | PN ---
[facility] COWS - Scale Resting Pulse: 0= [place] 80 or Below Sweatin= Chills/Flushing Restless Observation: 0= Sits Still Pupil Size: 1= Pupils >than Normal Bone or Joint Aches: 1= Mild Discomfort Runny Nose/ Eye Tearin= Nasal Congestion GI Upset > 30mins: 1= Stomach Cramp Tremor Observation of Outstretched Hands: 2= Slight Tremor Visible Yawning Observation: 0= None Anxiety or Irritability: 1=Feels Anxious/Irritable Goose Flesh Skin: 0=Smooth Skin COWS Score: 8 B[facility] Progress Note (SOAP) Subjective: 54 years old female admitted on 12/17/19 for opiate withdrawal sx management treating with methadone detox regiment bp elevation denies headache no blurred vision lisinopril 10 mg po bid initiated Objective: 12/19/19 10:22 Vital Signs - 24 hr 12/18/19 12/18/19 12/18/19 12:47 16:46 20:59 Temperature 97.3 F L 97.8 F 97.3 F L Pulse Rate 70 75 60 Respiratory 18 16 16 Rate Blood Pressure 147/97 166/96 162/99 O2 Sat by Pulse 99 99 Oximetry (%) 12/19/19 12/19/19 12/19/19 06:10 07:55 08:37 Temperature 97.5 F L 97.3 F L Pulse Rate 57 L 55 L 55 L Respiratory 16 20 Rate Blood Pressure 165/105 H 152/84 152/86 O2 Sat by Pulse 100 Oximetry (%) Laboratory Tests 12/18/19 12/18/19 12/18/19 10:10 10:10 10:10 WBC 4.0 RBC 3.91 Hgb 12.0 Hct 37.8 MCV 96.8 H MCH 30.6 MCHC 31.6 L RDW 14.1 Plt Count 202 D MPV 9.4 Sodium 141 Potassium 4.4 Chloride 108 H Carbon Dioxide 28 Anion Gap 5 L BUN 13.1 Creatinine 0.9 Est GFR (CKD-EPI)AfAm 82.84 Est GFR (CKD-EPI)NonAf 71.48 Random Glucose 89 Calcium 8.7 Total Bilirubin 0.5 AST 34 ALT 18 Alkaline Phosphatase 96 Total Protein 7.1 Albumin 3.2 L Syphilis Serology Non-reactive 12/19/19 10:23 lab noted covid pending Assessment: 12/19/19 10:23 opiate withdrawal hypertension Plan: methadone regiment amlodipine 10 mg po + lisinopril 10 mg po bid
[2019-12-19] MEDS: LISINOPRIL 10 MG TABLET (FP) PO SCH ×2 (11:01→22:41)
[2019-12-19] MEDS: THIAMINE HCL 100 MG TABLET (FP) PO SCH (22:40)
[2019-12-19] MEDS: METHOCARBAMOL 500 MG TABLET PO PRN (22:42)
[2019-12-20] MEDS: NICOTINE 14 MG/24 HOURS TOPICAL PATCH TD SCH (09:44)
[2019-12-20] MEDS: amLODIPine BESYLATE 10 MG TABLET (FP) PO SCH (09:44)
[2019-12-20] MEDS: LISINOPRIL 10 MG TABLET (FP) PO SCH ×2 (09:44→22:30)
[2019-12-20] MEDS: PRENATAL VITAMINS W/ FOLIC ACID TABLET (FP) PO SCH (09:44)
[2019-12-20] MEDS ORDERED: METHADONE HCL 10 MG TABLET (FOR DETOX USE ONLY) PO ONE (10:00)
[2019-12-20] MEDS: METHOCARBAMOL 500 MG TABLET PO PRN ×3 (10:27→22:30)
[2019-12-20] MEDS ORDERED: cloNIDine HCL 0.1 MG TABLET PO PRN (10:45)
--- NOTE | 2019-12-20 10:46 | PN ---
[facility] COWS - Scale Resting Pulse: 0= [place] 80 or Below Sweatin= No chills or Flushing Restless Observation: 0= Sits Still Pupil Size: 0= Normal to Room Light Bone or Joint Aches: 1= Mild Discomfort Runny Nose/ Eye Tearin= Nasal Congestion GI Upset > 30mins: 1= Stomach Cramp Tremor Observation of Outstretched Hands: 1= Tremor [place], Not Seen Yawning Observation: 0= None Anxiety or Irritability: 1=Feels Anxious/Irritable Goose Flesh Skin: 0=Smooth Skin COWS Score: 5 [facility]HS Progress Note (SOAP) Subjective: 54 years old female admitted on 12/17/19 for opiate withdrawal sx management treating with methadone detox regiment feeling better today less anxiety mild restlessness Vital Signs - 24 hr 12/19/19 12/19/19 12/19/19 12:51 16:59 20:50 Temperature 97.6 F 97.5 F L 97.3 F L Pulse Rate 89 63 57 L Respiratory 16 16 16 Rate Blood Pressure 108/67 121/68 128/80 O2 Sat by Pulse 97 100 Oximetry (%) 12/20/19 12/20/19 06:23 09:02 Temperature 97.2 F L 97.1 F L Pulse Rate 55 L 76 Respiratory 16 18 Rate Blood Pressure 140/85 142/89 O2 Sat by Pulse 97 Oximetry (%) bp elevation treated with amlodipine and lisinopril clonidine 0.1 mg po prn Objective: 12/20/19 10:46 Laboratory Tests 12/17/19 12/18/19 12/18/19 21:45 10:10 10:10 WBC 4.0 RBC 3.91 Hgb 12.0 Hct 37.8 MCV 96.8 H MCH 30.6 MCHC 31.6 L RDW 14.1 Plt Count 202 D MPV 9.4 Sodium Potassium Chloride Carbon Dioxide Anion Gap BUN Creatinine Est GFR (CKD-EPI)AfAm Est GFR (CKD-EPI)NonAf Random Glucose Calcium Total Bilirubin AST ALT Alkaline Phosphatase Total Protein Albumin Syphilis Serology Non-reactive COVID-19 (JAVIER) Not detected 12/18/19 10:10 WBC RBC Hgb Hct MCV MCH MCHC RDW Plt Count MPV Sodium 141 Potassium 4.4 Chloride 108 H Carbon Dioxide 28 Anion Gap 5 L BUN 13.1 Creatinine 0.9 Est GFR (CKD-EPI)AfAm 82.84 Est GFR (CKD-EPI)NonAf 71.48 Random Glucose 89 Calcium 8.7 Total Bilirubin 0.5 AST 34 ALT 18 Alkaline Phosphatase 96 Total Protein 7.1 Albumin 3.2 L Syphilis Serology COVID-19 (JAVIER) lab noted Assessment: 12/20/19 10:46 opiate withdrawal Plan: methadone regiment
[2019-12-20] MEDS: THIAMINE HCL 100 MG TABLET (FP) PO SCH (22:30)
[2019-12-21] MEDS ORDERED: METHADONE HCL 5 MG TABLET (FOR DETOX USE ONLY) PO ONE (06:00)
[2019-12-21 08:59] VITALS: BP 132/73; PULSE 76; TEMP 96.9
[2019-12-21] MEDS: LISINOPRIL 10 MG TABLET (FP) PO SCH (09:27)
[2019-12-21] MEDS: amLODIPine BESYLATE 10 MG TABLET (FP) PO SCH (09:27)
[2019-12-21] MEDS: PRENATAL VITAMINS W/ FOLIC ACID TABLET (FP) PO SCH (09:27)
[2019-12-21] MEDS: NICOTINE 14 MG/24 HOURS TOPICAL PATCH TD SCH (09:27)
--- NOTE | 2019-12-21 11:05 | DS ---
[facility] Detox Discharge Summary Admission Date: 12/17/19 Discharge Date: 12/21/19 - History Present History: Opioid Dependence Pertinent Past History: 54 yo woman admitted for heroin use disorder. PE Gnl: WD, slender, in NAD MS: awake, alert, follows commands Motor: noves limbs well Coord: nl Laboratory Tests 12/17/19 12/18/19 12/18/19 21:45 10:10 10:10 WBC 4.0 RBC 3.91 Hgb 12.0 Hct 37.8 MCV 96.8 H MCH 30.6 MCHC 31.6 L RDW 14.1 Plt Count 202 D MPV 9.4 Sodium Potassium Chloride Carbon Dioxide Anion Gap BUN Creatinine Est GFR (CKD-EPI)AfAm Est GFR (CKD-EPI)NonAf Random Glucose Calcium Total Bilirubin AST ALT Alkaline Phosphatase Total Protein Albumin Syphilis Serology Non-reactive COVID-19 (JAVIER) Not detected 12/18/19 10:10 WBC RBC Hgb Hct MCV MCH MCHC RDW Plt Count MPV Sodium 141 Potassium 4.4 Chloride 108 H Carbon Dioxide 28 Anion Gap 5 L BUN 13.1 Creatinine 0.9 Est GFR (CKD-EPI)AfAm 82.84 Est GFR (CKD-EPI)NonAf 71.48 Random Glucose 89 Calcium 8.7 Total Bilirubin 0.5 AST 34 ALT 18 Alkaline Phosphatase 96 Total Protein 7.1 Albumin 3.2 L Syphilis Serology COVID-19 (JAVIER) Active Medications Generic Name Dose Route Start Last Admin Trade Name Freq PRN Reason Stop Dose Admin Acetaminophen 650 mg 12/17/19 20:58 Tylenol - PO Q6H PRN PAIN LEVEL 4 - 6 Acetaminophen 650 mg 12/17/19 20:58 Tylenol - PO Q6H PRN FEVER Al Hydroxide/Mg Hydroxide 30 ml 12/17/19 20:58 Mylanta Oral Suspension - PO Q6H PRN DYSPEPSIA Amlodipine Besylate 10 mg 12/19/19 10:00 12/21/19 09:27 Norvasc - PO 10 mg DAILY MARIAM Administration Bismuth Subsalicylate 524 mg 12/17/19 20:58 Pepto-Bismol - PO Q1H PRN DIARRHEA Clonidine 0.1 mg 12/20/19 10:45 Catapres - PO Q6H PRN HYPERTENSION Dicyclomine HCl 10 mg 12/17/19 20:58 Bentyl - PO 12/23/19 21:00 Q6H PRN Abdominal Cramping Eucalyptus/Menthol/Phenol/Sorbitol 1 each 12/17/19 20:58 Cepastat Lozenge - MM 12/23/19 20:59 Q4H PRN SORE THROAT Guaifenesin 10 ml 12/17/19 20:58 Robitussin - PO Q6H PRN COUGH Hydroxyzine Pamoate 25 mg 12/17/19 20:58 12/18/19 22:27 Vistaril - PO 12/23/19 20:58 25 mg Q4HWA PRN Administration AGITATION Ibuprofen 400 mg 12/17/19 20:58 Motrin - PO Q6H PRN PAIN LEVEL 1 - 3 Lisinopril 10 mg 12/19/19 10:30 12/21/19 09:27 Prinivil PO 10 mg BID MARIAM Administration Magnesium Citrate 300 ml 12/17/19 20:58 Citroma - PO Q48H PRN CONSTIPATION Magnesium Hydroxide 30 ml 12/17/19 20:58 Milk Of Magnesia - PO PRN PRN CONSTIPATION Melatonin 10 mg 12/18/19 10:02 Melatonin PO HS PRN INSOMNIA Methocarbamol 500 mg 12/17/19 20:58 12/20/19 22:30 Robaxin - PO 12/23/19 20:59 500 mg Q6H PRN Administration MUSCLE SPASMS Nicotine 14 mg 12/18/19 10:00 12/21/19 09:27 Nicoderm Patch - TD Not Given DAILY MARIMA Nicotine Polacrilex 2 mg 12/17/19 20:58 Nicorette Gum - BUC Q2H PRN NICOTINE REPLACEMENT RX Multivit/Folic Acid/Iron 1 tab 12/18/19 10:00 12/21/19 09:27 Vitamins (Sjr) - PO 1 tab DAILY MARIAM Administration Pseudoephedrine/Triprolidine 1 combo 12/17/19 20:58 Actifed - PO Q6H PRN NASAL CONGESTION Thiamine HCl 100 mg 12/17/19 22:00 12/20/19 22:30 Vitamin B1 - PO 100 mg HS MARIAM Administration - Physical Exam Results Vital Signs: Vital Signs Temperature 96.9 F L 12/21/19 08:35 Pulse Rate 76 12/21/19 08:35 Respiratory Rate 18 12/21/19 08:35 Blood Pressure 132/73 12/21/19 08:35 O2 Sat by Pulse Oximetry (%) 98 12/21/19 05:39 Pertinent Admission Physical Exam Findings: SEE ABOVE - Treatment Hospital Course: Detox Protocol Followed, Detoxed Safely, Responded well, Discharged Condition Good, Rehab Referral Accepted Patient has Accepted a Rehab Referral to: [facility] Tuesday, , outpatient program - Medication Discharge Medications: Ambulatory Orders Naloxone HCl [Narcan] 4 mg NS ASDIR PRN #1 spray 12/18/19
== END 2019-12-21 10:44 | disposition home or self-care (01) | DRG 773 ==
LOC: YASAS 18:21 → Y3N 21:33
PROVIDERS: ADMIT Allergy & Immunology; ATTEND Allergy & Immunology
PROC: HZ2ZZZZ Detoxification Services for Substance Abuse Treatment (ICD-10-PCS; principal; 2019-12-17)
DX: F11.23 Opioid dependence with withdrawal (principal); F14.20 Cocaine dependence, uncomplicated; F12.20 Cannabis dependence, uncomplicated; F17.210 Nicotine dependence, cigarettes, uncomplicated; F19.282 Other psychoactive substance dependence with psychoactive substance-induced sleep disorder; I10 Essential (primary) hypertension; R63.8 Other symptoms and signs concerning food and fluid intake; R45.89 Other symptoms and signs involving emotional state; Z86.19 Personal history of other infectious and parasitic diseases; Z91.14 Patient's other noncompliance with medication regimen; Z56.0 Unemployment, unspecified; Z59.0 Homelessness
CPT/HCPCS: 36415; 80053; 85027; 86780; J0735; U0003